=== PATIENT | male | born 1990 | race Caucasian/White ===

== ENCOUNTER 2017-03-01 12:48 | Inpatient (IN) | payer BC ==
--- NOTE | 2017-03-01 13:11 | ED ---
Psych HPI - General Chief Complaint: Psychiatric Symptoms Stated Complaint: Suicidal - Hand Injury Time Seen by Provider: 03/01/17 13:05 Source: patient, RN notes reviewed Mode of arrival: ambulatory - History of Present Illness Initial Comments: 26-year-old male presents to the emergency department with a chief complaint of suicidal ideation. Patient states that everything is just not working out well for him. Patient states he started to feel this way last night. Patient states he thought about walking out into traffic supposed to coming into the hospital today. Patient states he punched a wall last night out of anger. Patient states he does have from depression and has been hospitalized in the past. Patient does not see a counselor he does not see a psychiatrist is not currently on any medications. Patient states that he was concerned about his life so he thought that he should be evaluated. Patient admits to right hand pain worse to the outer aspect of the hand.Patient denies any recent fever, chills, shortness of breath, chest pain, back pain, abdominal pain, nausea vomiting, numbness or tingling, dysuria or hematuria, constipation or diarrhea, headaches or visual changes, or any other current symptoms. - Related Data Home Medications Medication Instructions Recorded Confirmed Ibuprofen [Motrin] 400 mg PO Q6HR PRN 03/01/17 03/01/17 Allergies Allergy/AdvReac Type Severity Reaction Status Date / Time No Known Allergies Allergy Verified 03/01/17 13:45 Review of Systems ROS Statement: Those systems with pertinent positive or pertinent negative responses have been documented in the HPI. ROS Other: All systems not noted in ROS Statement are negative. Past Medical History Past Medical History: No Reported History Additional Past Medical History / Comment(s): Chronic pain in right shoulder, and bilateral knees. History of Any Multi-Drug Resistant Organisms: None Reported Past Surgical History: Orthopedic Surgery Additional Past Surgical History / Comment(s): (L) KNEE, (R) KNEE, MOUTH SURG A CHILD Additional Past Anesthesia/Blood Transfusion Reaction / Comment(s): agitation after coming out of anesthesia. Past Psychological History: Anxiety, Depression, PTSD Smoking Status: Current every day smoker Past Alcohol Use History: Occasional Past Drug Use History: Marijuana - Past Family History Mother Additional Family Medical History / Comment(s): bulging disc in back. General Exam Limitations: no limitations General appearance: alert, in no apparent distress ENT exam: Present: normal exam, mucous membranes moist Neck exam: Present: normal inspection. Absent: tenderness, meningismus, lymphadenopathy Respiratory exam: Present: normal lung sounds bilaterally. Absent: respiratory distress, wheezes, rales, rhonchi, stridor Cardiovascular Exam: Present: regular rate, normal rhythm Extremities exam: Present: normal inspection, full ROM, tenderness (Over the fourth and fifth metatarsal carpals on the right hand), normal capillary refill Back exam: Present: normal inspection Neurological exam: Present: alert, oriented X3 Psychiatric exam: Present: depressed, suicidal ideation. Absent: homicidal ideation Skin exam: Present: warm, dry, intact, normal color. Absent: rash Course Vital Signs 03/01/17 03/01/17 12:55 15:49 Temperature 97.8 F Pulse Rate 111 H 79 Respiratory 20 18 Rate Blood Pressure 140/87 121/61 O2 Sat by Pulse 98 97 Oximetry Procedures - Orthopedic Splinting/Casting Injury #1 Side: right Upper Extremity Injury Location: hand Upper Extremity Immobilizer: ulnar gutter (short arm) Medical Decision Making - Medical Decision Making 26-year-old male presents emergency Department chief complaint of suicidal ideation as well as right hand pain. This time patient will undergo an x-ray of the right hand. This time patient does appear to have boxer fractures. We will splint the patient. We discussed follow-up with refill. We will also have the patient medically cleared for evaluation by psychiatry. This was discussed with the patient who is agreement with plan. This time patient does not appear to have major medical emergencies and is cleared to be evaluated by psychiatry. At this time the patient will be admitted to the psychiatric unit. Patient agreement with this. - Lab Data Lab Results 03/01/17 Range/Units 15:26 Urine Opiates Screen Detected H (NotDetected) Ur Oxycodone Screen Not Detected (NotDetected) Urine Methadone Screen Not Detected (NotDetected) Ur Propoxyphene Screen Not Detected (NotDetected) Ur Barbiturates Screen Not Detected (NotDetected) U Tricyclic Antidepress Not Detected (NotDetected) Ur Phencyclidine Scrn Not Detected (NotDetected) Ur Amphetamines Screen Not Detected (NotDetected) U Methamphetamines Scrn Not Detected (NotDetected) U Benzodiazepines Scrn Not Detected (NotDetected) Urine Cocaine Screen Not Detected (NotDetected) U Marijuana (THC) Screen Detected H (NotDetected) - Radiology Data Radiology results: report reviewed, image reviewed Disposition Clinical Impression: Closed boxer's fracture, Depression Narrative: right hand Disposition: TRANSFER TO PSYCH HOSP/UNIT Referrals: Al Torres MD [Primary Care Provider] - 1-2 days Ryan Vyas DO [Doctor of Osteopathic Medicine] - 1-2 days Time of Disposition: 16:13
--- NOTE | 2017-03-01 13:30 | XR ---
EXAMINATION TYPE: XR hand complete RT DATE OF EXAM: 03/01/2017 1:21 PM CLINICAL HISTORY: Punched wall injury with pain. TECHNIQUE: Frontal, lateral and oblique images of the right hand are obtained. COMPARISON: None. FINDINGS: There is acute comminuted minimally displaced fracture through distal metaphysis fifth met atarsal in the right hand. There is some radial and volar angulation of distal fracture fragment. The joint spaces in the right hand appear within normal limits. The overlying soft tissue appears unrem arkable. IMPRESSION: There is acute comminuted minimally displaced fracture through distal fifth metatarsal i n the right hand. (Boxer type fracture) (Initial encounter closed type post traumatic fracture).
[2017-03-01] MEDS ORDERED: IBUPROFEN 600 MG TAB PO STA (13:39)
[2017-03-01 16:49] VITALS: BMI 39.7
[2017-03-01] MEDS ORDERED: MAG HYDROX/AL HYDROX/SIMETH 30 ML CUP PO PRN (16:59)
[2017-03-01] MEDS ORDERED: MAGNESIUM HYDROXIDE 2,400 MG/10 ML CUP PO PRN (16:59)
[2017-03-01] MEDS ORDERED: ZIPRASIDONE 20 MG VIAL IM PRN (16:59)
[2017-03-01] MEDS: ACETAMINOPHEN TAB 325 MG TAB PO PRN (17:29)
[2017-03-02] MEDS: ACETAMINOPHEN TAB 325 MG TAB PO PRN ×5 (00:04→20:49)
[2017-03-02] MEDS: LORazepam 1 MG TAB PO PRN ×3 (00:05→18:21)
--- NOTE | 2017-03-02 08:48 | P.CNOR ---
History of Present Illness - [facility] Consult date: 03/02/17 Consult reason: fracture (Boxer's fracture right hand) History of present illness: This is a 26-year-old male admitted to the mental health unit yesterday with suicidal thoughts. He states that he punched a wall yesterday sustaining injury to his right hand. He was placed in a short arm splint and we're consulted for orthopedic evaluation. Past Medical History Past Medical History: No Reported History Additional Past Medical History / Comment(s): Chronic pain in right shoulder, and bilateral knees. History of Any Multi-Drug Resistant Organisms: None Reported Past Surgical History: Orthopedic Surgery Additional Past Surgical History / Comment(s): (L) KNEE, (R) KNEE, MOUTH SURG A CHILD. pt has right hand fx and is in a soft cast 03/01/17 Additional Past Anesthesia/Blood Transfusion Reaction / Comm: agitation after coming out of anesthesia. Past Psychological History: Anxiety, Depression, PTSD Smoking Status: Current every day smoker Past Alcohol Use History: Occasional Past Drug Use History: Marijuana - Past Family History Mother Additional Family Medical History / Comment(s): bulging disc in back. Medications and Allergies Home Medications Medication Instructions Recorded Confirmed Type Ibuprofen [Motrin] 400 mg PO Q6HR PRN 03/01/17 03/01/17 History Allergies Allergy/AdvReac Type Severity Reaction Status Date / Time No Known Allergies Allergy Verified 03/01/17 16:50 Physical Examination This is a 26-year-old male in no acute distress. He is alert and oriented 3. Exam of the right right upper extremity reveals a short arm splint intact including the ring and little fingers. The splint is removed. There is pain on palpation about the fifth metacarpal head. He has full finger motion without difficulty or pain. Neurovascular status to the upper extremities is intact. Results X-rays of the right hand reveal a fifth metacarpal neck fracture with mild palmar angulation. No other fractures or bony modalities noted. Assessment and Plan (1) Closed boxer's fracture Status: Acute Plan: The clinical and x-ray findings are discussed the patient. It is recommended that he be immobilized for the next 4-6 weeks. He will remain in the current splint until a boxer's fracture brace may be obtained. He is to keep the brace in place until follow-up in 2-[address] Ryan Vyas. I will leave pain medication up to the discretion of his psychiatrist.
[2017-03-02] MEDS: HYDROcodone/APAP 5-325MG 1 EACH TAB PO PRN ×2 (10:33→19:53)
[2017-03-02] MEDS: buPROPion XL 150 MG TAB.ER.24H PO SCH (10:35)
--- NOTE | 2017-03-02 10:54 | P.HP ---
Psychiatric H&P - . History & Physical: Allergies Allergy/AdvReac Type Severity Reaction Status Date / Time No Known Allergies Allergy Verified 03/01/17 16:50 Vital Signs Temp 98.4 F 03/02/17 05:30 Pulse 94 03/02/17 05:30 Resp 18 03/02/17 05:30 BP 145/70 03/02/17 05:30 Pulse Ox 97 03/01/17 16:22 Intake & Output 03/01/17 03/02/17 03/02/17 18:59 06:59 18:59 Weight 125.651 kg Laboratory Last Values Urine Opiates Screen Detected (NotDetected) H 03/01/17 15:26 Ur Oxycodone Screen Not Detected (NotDetected) 03/01/17 15:26 Urine Methadone Screen Not Detected (NotDetected) 03/01/17 15:26 Ur Propoxyphene Screen Not Detected (NotDetected) 03/01/17 15:26 Ur Barbiturates Screen Not Detected (NotDetected) 03/01/17 15:26 U Tricyclic Antidepress Not Detected (NotDetected) 03/01/17 15:26 Ur Phencyclidine Scrn Not Detected (NotDetected) 03/01/17 15:26 Ur Amphetamines Screen Not Detected (NotDetected) 03/01/17 15:26 U Methamphetamines Scrn Not Detected (NotDetected) 03/01/17 15:26 U Benzodiazepines Scrn Not Detected (NotDetected) 03/01/17 15:26 Urine Cocaine Screen Not Detected (NotDetected) 03/01/17 15:26 U Marijuana (THC) Screen Detected (NotDetected) H 03/01/17 15:26 03/02/17 10:19 IDENTIFYING DATA: This patient is a 27-year-old male who was admitted through the emergency room to the mental health unit. He presents with worsening symptoms of depression with acute suicidal ideation. HPI: The patient states that his mood is been depressed he has no desire for anything energy is low, sleep has been up and down. He states that he has no reason to live as he feels overwhelmed by stressors. Just prior to this admission he was involved in a verbal altercation with his fiance and out of anger he punched a wall and he incurred a boxer's fracture of his right hand. He states this altercation occurred in the presence of his 8-year-old daughter and he is very upset that she witnessed that. He endorses tearfulness, appetite is been stable. He continues have hopelessness thinking with ongoing suicidal thoughts he refuses to discuss his suicidal plan. He reports having no homicidal ideation. He is endorsing no auditory or visual hallucinations he is endorsing no specific delusions. He endorses no history of hypomanic or manic episodes. He states they have no firearms at home. He endorses no anxiety symptoms but just feels overwhelmed by stressors. He states that he has not seen his 2 sons since November, financially he is overwhelmed pain child support for his 8-year-old daughter and has not yet started pain for his sons. He states his vehicle broke down. PAST PSYCHIATRIC HISTORY: This is the patient's second inpatient psychiatric admission, his first was in 2013 under the care of Dr. Hurtado. He was placed on Zoloft at that time. He states he complied with the medication for 30 days then stopped it as he felt numb. Prior he had been on Effexor XR he does not remember how that medication worked he has also been prescribed Vistaril and trazodone. He is not working with an outpatient psychiatrist or therapist. No history of suicide attempts no other self-injurious behavior except for the recent fracture from punching the wall. The patient did see a psychiatrist while in the . PMH: Boxer's fracture of right hand ALLERGIES: NO KNOWN DRUG ALLERGIES MEDICATIONS: None CHEMICAL DEPENDENCY HISTORY: He reports using alcohol once every 2 weeks having anywhere from 1-5 drinks, he uses marijuana monthly, he did go to rehab while in the in 2010 but he felt it was unnecessary FAMILY PSYCHIATRIC HISTORY: None reported, no suicides in the family FAMILY CHEMICAL DEPENDENCY HISTORY: Other known to be alcohol dependent SOCIAL HISTORY: The patient is 26 years old he single but engaged since November. He had been previously with his fiance they broke up and they have now reconciled. He has a 8-year-old daughter with his current fiance. He has 6-month-old and [id number] sons with another woman. 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 He was exposed to no combat or trauma he was honorably discharged. He reports no legal history he reports no abuse history. He was born and raised in [place]. MENTAL STATUS EXAM: The patient is an overweight male appearing his stated age. He wears a mccormack he has numerous visible tattoos on his upper extremities his right upper extremity is splinted for the fracture. Eye contact is appropriate he becomes briefly tearful. He endorses a depressed and hopeless mood with ongoing suicidal thoughts. He reports no homicidal ideation. There is no report or evidence of auditory or visual hallucinations he endorses no specific delusions. He demonstrates no tangential thinking loose associations or flight of ideas. He endorses no racing thoughts. He demonstrates no verbal or physical aggressiveness. Hygiene grooming adequate he is dressed in his own clothing. He is alert and oriented to person place and date he is able to spell world backwards. He demonstrates no verbal or physical aggressiveness during our session. STRENGTHS/WEAKNESSES: Strength: Housing, employment weaknesses: Lack of follow- up with mental health services as an outpatient INTELLECTUAL FUNCTIONING: Average IMPRESSIONS: [] 1. Major depressive disorder recurrent severe without psychosis, rule out alcohol use disorder 2. Rule out cluster B traits 3. Boxer's fracture right hand PLAN: The patient has been admitted to the mental health unit he has signed in voluntarily. We reviewed his presenting symptoms and medication options and we will initiate Wellbutrin XL 150 mg in the morning with a plan of likely titrating it further. service worker helper has met with the patient and completed a psychosocial assessment we will begin discharge planning. He will be seen by the training administrator for routine medical exam. He has already been evaluated by orthopedics for his fracture. The recommendations were reviewed. [place] 5 mg twice daily will be initiated for pain control as needed. We will monitor him for safety he is encouraged to participate in the milieu. As we will allow we will arrange a support meeting during the hospitalization. 03/02/17 10:50
[2017-03-02 11:01] LABS: Basophils # (A) 0.1 k/uL (0-0.2); Basophils % (A) 0 %; CH 29.3; Eosinophils # (A) 0.2 k/uL (0-0.7); Eosinophils % (A) 2 %; HCT 48.8 % (39.0-53.0); HDW 2.77; Luc # (Auto) 0.24; Luc % (Auto) 2; Lymphocytes # (A) 2.3 k/uL (1.0-4.8); Lymphocytes % (A) 19 %; MCH 29.3 pg (25.0-35.0); MCHC 32.9 g/dL (31.0-37.0); MCV 89.2 fL (80.0-100.0); Mean Platelet Volume 6.4; Monocytes # (A) 0.7 k/uL (0-1.0); Monocytes % (A) 6 %; Neutrophils # (A) 8.5 k/uL (1.3-7.7); Neutrophils % (A) 71 %; RBC 5.47 m/uL (4.30-5.90); WBC (Perox) 12.06
[2017-03-02 11:25] LABS: ALT 38 U/L (21-72); AST 24 U/L (17-59); Alkaline Phosphatase 73 U/L (38-126); Anion Gap 10 mmol/L; Blood Urea Nitrogen 10 mg/dL (9-20); Calcium 9.5 mg/dL (8.4-10.2); Carbon Dioxide 26 mmol/L (22-30); Chloride 107 mmol/L (98-107); Glucose 93 mg/dL (74-99); Non-African American GFR(MDRD) >60 (>60 ml/min/1.73 sqM); Potassium 4.5 mmol/L (3.5-5.1); Sodium 143 mmol/L (137-145); Total Bilirubin 0.6 mg/dL (0.2-1.3); Total Protein 6.8 g/dL (6.3-8.2)
[2017-03-03] MEDS: ACETAMINOPHEN TAB 325 MG TAB PO PRN ×3 (06:39→20:44)
[2017-03-03] MEDS: HYDROcodone/APAP 5-325MG 1 EACH TAB PO PRN ×3 (07:56→22:56)
[2017-03-03] MEDS: buPROPion XL 150 MG TAB.ER.24H PO SCH (07:56)
--- NOTE | 2017-03-03 09:37 | P.PN ---
Progress Note - Text Interval history: The patient is found at the front office attendant he follows me to an interview room. He reports sleeping a portion of the night. Appetite is low. He has been tearful he states his mood is "shitty". He continues to have hopelessness thinking. He is concerned as to what his daughter thinks of him after his violent behavior. He reports attending some groups. We discussed the initiation of Wellbutrin XL his questions were answered. Mental status exam: The patient is alert he is dressed in his own clothing he is an overweight male appearing his stated age. He wears a mccormack. He has a new splint on his right upper extremity due to his fracture. He appears dysphoric he is tearful during the session. He reports feeling depressed and hopeless. Suicidal thoughts continue. No homicidal ideation he reports no thoughts of violence towards others. He has feelings of remorse regarding his behavior in front of his daughter. He demonstrates no verbal or physical aggressiveness. He is directable. He has no spontaneous speech but provides brief answers to questions asked. No flight of ideas or loose associations. Plan: The patient will continue on the Wellbutrin XL we will consider titrating that further in the next few days. He is encouraged to continue fully participating in the milieu. We will continue monitoring him for safety. It is likely he will not be older return home he states he may be a little to reside with his parents. He reports his pain is controlled with the [place].
[2017-03-03] MEDS: LORazepam 1 MG TAB PO PRN ×2 (09:39→20:44)
--- NOTE | 2017-03-03 22:23 | P.HPIM ---
History of Present Illness H&P Date: 03/02/17 Chief Complaint: Suicidal ideation. This is a history and physical in a well-known 26-year-old white male who is fairly well-known to my practice. He states he is been having difficulty in his marriage and had significant problems with anger. He has struggled with depression the past and does seek counseling. He states that he felt desponded yesterday and punched a wall out of anger. Boxer's fracture was noted in his x- ray. Orthopedics has been consulted and he is been placed on appropriate splint. He otherwise has no significant past medical history. He denies any significant fever or chills shortness of breath, chest pain and back pain or significant abdominal pain Review of Systems Constitutional: Denies chills, Denies fever Eyes: denies blurred vision, denies pain Ears, nose, mouth and throat: Denies headache, Denies sore throat Cardiovascular: Denies chest pain, Denies shortness of breath Respiratory: Denies cough Gastrointestinal: Denies abdominal pain, Denies diarrhea, Denies nausea, Denies vomiting Past Medical History Past Medical History: No Reported History Additional Past Medical History / Comment(s): Chronic pain in right shoulder, and bilateral knees. History of Any Multi-Drug Resistant Organisms: None Reported Past Surgical History: Orthopedic Surgery Additional Past Surgical History / Comment(s): (L) KNEE, (R) KNEE, MOUTH SURG A CHILD. pt has right hand fx and is in a soft cast 03/01/17 Additional Past Anesthesia/Blood Transfusion Reaction / Comment(s): agitation after coming out of anesthesia. Past Psychological History: Anxiety, Depression, PTSD Smoking Status: Current every day smoker Past Alcohol Use History: Occasional Past Drug Use History: Marijuana - Past Family History Mother Additional Family Medical History / Comment(s): bulging disc in back. Medications and Allergies Home Medications Medication Instructions Recorded Confirmed Type Ibuprofen [Motrin] 400 mg PO Q6HR PRN 03/01/17 03/01/17 History Allergies Allergy/AdvReac Type Severity Reaction Status Date / Time No Known Allergies Allergy Verified 03/01/17 16:50 Physical Exam Vitals: Vital Signs Temp Pulse Pulse Resp BP BP BP 03/02/17 05:30 98.4 F 94 18 145/70 03/01/17 16:41 98.2 F 90 18 124/71 03/01/17 16:22 97.8 F 79 18 121/61 Pulse Ox 03/02/17 05:30 03/01/17 16:41 03/01/17 16:22 97 Intake and Output 03/01/17 03/02/17 03/02/17 22:59 06:59 14:59 Other: Weight 125.651 kg - Constitutional General appearance: no acute distress - EENT Eyes: EOMI - Neck Neck: no lymphadenopathy - Respiratory Respiratory: bilateral: CTA - Cardiovascular Rhythm: regular Heart sounds: normal: S1, S2 - Gastrointestinal General gastrointestinal: soft, no tenderness - Musculoskeletal Musculoskeletal: gait normal - Psychiatric Psychiatric: A&O x's 3, no intact judgment & insight Assessment and Plan (1) Closed boxer's fracture Status: Acute (2) Depression Status: Acute (3) Suicidal ideation Status: Acute Plan: Appreciate orthopedic input. Continue current regimen of treatment from psychiatry. We'll continue follow from a medical perspective. Question need for pain control for the fracture. We'll defer to psychiatry.
[2017-03-04] MEDS: buPROPion XL 150 MG TAB.ER.24H PO SCH (08:20)
[2017-03-04] MEDS: HYDROcodone/APAP 5-325MG 1 EACH TAB PO PRN ×3 (08:22→23:31)
--- NOTE | 2017-03-04 09:14 | P.PN ---
Progress Note - Text Interval history: The patient is found at the front end alignment specialist he follows me to an interview room. He reports his mood continues to be down he feels guilty he finds it difficult to think of any positive characteristics that he has. He is glad that his son's mother is allowing him to speak to them. He did call his fianc and left a voicemail as she did not answer. He reports attending some groups. He did get upset yesterday in group when he was asked to name one positive quality about himself. He states he can't possibly think of one when he was recently violent at home. We discussed that he may be utilizing all or none thinking and he is challenged to still try to think of some positive qualities. We discussed the Wellbutrin further we will increase the dose tomorrow. He is reporting no side effects from the medication. We did increase his [place] because of pain complaint related to his hand fracture. Mental status exam: The patient is alert he is an overweight male appearing his stated age. He is dressed in his own clothing. He is wearing a splint on his right upper extremity. He reports his mood is depressed he still has some hopelessness thinking with continued suicidal thoughts. He reports no homicidal ideation or aggressive feelings towards others. He is endorsing no auditory or visual hallucinations he endorses no specific delusions. Insight and judgment limited. Cognitively he is oriented to person place and date. He demonstrates no verbal or physical aggressiveness during the session. He maintains a constricted to bland affect. Speech is spontaneous fluent nonpressured. There is no evidence of tangential thinking loose associations or flight of ideas. Plan: The patient will continue on the Wellbutrin XL we will titrate this to 300 mg daily starting tomorrow. We will continue to monitor him for safety and encourage his participation in the milieu. I anticipate he will be appropriate for discharge early to mid next week.
[2017-03-04] MEDS: ACETAMINOPHEN TAB 325 MG TAB PO PRN ×2 (11:35→20:05)
[2017-03-04] MEDS: LORazepam 1 MG TAB PO PRN ×2 (11:36→20:06)
[2017-03-05] MEDS: HYDROcodone/APAP 5-325MG 1 EACH TAB PO PRN ×3 (08:05→23:31)
[2017-03-05] MEDS: buPROPion XL 300 MG TAB.ER.24H PO SCH (08:07)
[2017-03-05] MEDS: LORazepam 1 MG TAB PO PRN (08:54)
[2017-03-05] MEDS: ACETAMINOPHEN TAB 325 MG TAB PO PRN ×2 (08:54→17:31)
--- NOTE | 2017-03-05 12:13 | P.PN ---
Progress Note - Text Interval history: A she has seen in cross coverage for Dr. Tee today. He reports that his mood is doing better overall. He seems to be tolerating the Wellbutrin XL 300 mg well. He talks about having punched a wall prior to admission. He had a family meeting today which seemed to go well. Mental status exam: He is alert and cooperative with the interview. His mood seems to be improved. His affect does show range. He denies any thoughts of harm to self or others. He does not show any agitation. No evidence of active psychosis. Plan: We will maintain current psychotropic medications. He does inquire regarding and anti-inflammatory, we will make contact with Dr. Torres regarding a follow-up and any recommendations. Continue to cover this patient for Dr. Tee through the weekend.
[2017-03-05] MEDS: IBUPROFEN 800 MG TAB PO PRN ×2 (13:48→21:32)
[2017-03-06] MEDS: ACETAMINOPHEN TAB 325 MG TAB PO PRN ×3 (00:52→19:06)
[2017-03-06] MEDS: LORazepam 1 MG TAB PO PRN ×3 (00:52→19:24)
[2017-03-06 01:15] VITALS: RESP 16
[2017-03-06] MEDS: buPROPion XL 300 MG TAB.ER.24H PO SCH (07:44)
[2017-03-06] MEDS: HYDROcodone/APAP 5-325MG 1 EACH TAB PO PRN ×3 (07:44→23:50)
[2017-03-06] MEDS: IBUPROFEN 800 MG TAB PO PRN (10:10)
--- NOTE | 2017-03-06 12:40 | P.PN ---
Progress Note - Text Interval history: Patient seen in cross coverage for Dr. Tee today. He reports that overall he is doing better. He describes 2 incidences today where he was upset but was able to use his coping skills. He does describe at times feeling some anxiety. He feels that the Wellbutrin is helping is depression. He was started on Motrin when necessary which is giving him some benefit. Mental status exam: He is alert and cooperative with the interview. His speech is fluent, not rapid or pressured. Thought processes organized. His mood is improved overall. He denies any thoughts of harm to self or others. No evidence of psychosis or agitation. Plan: Patient be maintained on current psychotropic medication regimen. Dr. Tee or colleague will be resuming care this patient starting tomorrow. Look for discharge planning as early as Tuesday of this next week.
[2017-03-07] MEDS: IBUPROFEN 800 MG TAB PO PRN ×3 (00:53→17:06)
[2017-03-07] MEDS: LORazepam 1 MG TAB PO PRN ×3 (02:21→19:59)
[2017-03-07] MEDS: ACETAMINOPHEN TAB 325 MG TAB PO PRN ×3 (02:23→19:59)
[2017-03-07] MEDS: buPROPion XL 300 MG TAB.ER.24H PO SCH (08:09)
[2017-03-07] MEDS: HYDROcodone/APAP 5-325MG 1 EACH TAB PO PRN ×3 (08:09→23:32)
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
[2017-03-08] MEDS: IBUPROFEN 800 MG TAB PO PRN (01:05)
[2017-03-08] MEDS: ACETAMINOPHEN TAB 325 MG TAB PO PRN (06:25)
[2017-03-08 06:26] VITALS: BP 119/58; PULSE 70; TEMP 98.1
[2017-03-08] MEDS: LORazepam 1 MG TAB PO PRN (06:30)
[2017-03-08] MEDS: buPROPion XL 300 MG TAB.ER.24H PO SCH (09:00)
[2017-03-08] MEDS: HYDROcodone/APAP 5-325MG 1 EACH TAB PO PRN (09:01)
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
== END 2017-03-08 11:13 | disposition home or self-care (01) | DRG 885 ==
LOC: EC 12:48 → 3MHU 16:15
PROVIDERS: ADMIT Psychiatry & Neurology Psychiatry; ATTEND Psychiatry & Neurology Psychiatry
DX: F33.2 Major depressive disorder, recurrent severe without psychotic features (principal); R45.851 Suicidal ideations; E66.3 Overweight; F17.200 Nicotine dependence, unspecified, uncomplicated; F43.10 Post-traumatic stress disorder, unspecified; S62.339A Displaced fracture of neck of unspecified metacarpal bone, initial encounter for closed fracture
CPT/HCPCS: 29125; 80053; 80306; 82075; 84443; 85025; 99285

== ENCOUNTER 2017-08-05 22:23 | Emergency (ER) | payer SELFPAY ==
--- NOTE | 2017-08-06 00:10 | ED ---
General Adult HPI - General Chief complaint: Psychiatric Symptoms Stated complaint: mental health Time Seen by Provider: 08/05/17 22:38 Source: patient, RN notes reviewed, old records reviewed Mode of arrival: ambulatory Limitations: no limitations - History of Present Illness Initial comments: This is a 19-year-old male here for evaluation of psychiatric disease. Patient is not suicidal but just feels not himself not well. Patient's it is off all psychiatric medications at this time and feels it is been medication. He does not feel he needs hospital admission. He is not suicidal but is states is having a difficult time mentally right now. Patient does have extensive psychiatric history - Related Data Home Medications Medication Instructions Recorded Confirmed guaiFENesin 400 mg PO Q4H PRN 08/05/17 08/05/17 Allergies Allergy/AdvReac Type Severity Reaction Status Date / Time No Known Allergies Allergy Verified 08/05/17 22:54 Review of Systems ROS Statement: Those systems with pertinent positive or pertinent negative responses have been documented in the HPI. ROS Other: All systems not noted in ROS Statement are negative. Past Medical History Past Medical History: No Reported History Additional Past Medical History / Comment(s): Chronic pain in right shoulder, and bilateral knees. History of Any Multi-Drug Resistant Organisms: None Reported Past Surgical History: Orthopedic Surgery Additional Past Surgical History / Comment(s): (L) KNEE, (R) KNEE, MOUTH SURG A CHILD. pt has right hand fx and is in a soft cast 03/01/17 Additional Past Anesthesia/Blood Transfusion Reaction / Comment(s): agitation after coming out of anesthesia. Past Psychological History: Anxiety, Depression, PTSD Smoking Status: Current every day smoker Past Alcohol Use History: Occasional Past Drug Use History: Marijuana - Past Family History Mother Additional Family Medical History / Comment(s): bulging disc in back. General Exam Limitations: no limitations General appearance: alert, in no apparent distress Head exam: Present: atraumatic, normocephalic, normal inspection Eye exam: Present: normal appearance, PERRL, EOMI. Absent: scleral icterus, conjunctival injection, periorbital swelling ENT exam: Present: normal exam, mucous membranes moist Neck exam: Present: normal inspection. Absent: tenderness, meningismus, lymphadenopathy Respiratory exam: Present: normal lung sounds bilaterally. Absent: respiratory distress, wheezes, rales, rhonchi, stridor Cardiovascular Exam: Present: regular rate, normal rhythm, normal heart sounds. Absent: systolic murmur, diastolic murmur, rubs, gallop, clicks GI/Abdominal exam: Present: soft, normal bowel sounds. Absent: distended, tenderness, guarding, rebound, rigid Extremities exam: Present: normal inspection, full ROM, normal capillary refill. Absent: tenderness, pedal edema, joint swelling, calf tenderness Back exam: Present: normal inspection Neurological exam: Present: alert, oriented X3, CN II-XII intact Psychiatric exam: Present: normal affect, normal mood Skin exam: Present: warm, dry, intact, normal color. Absent: rash Course Vital Signs 08/05/17 22:27 Temperature 98.0 F Pulse Rate 103 H Respiratory 20 Rate Blood Pressure 136/74 O2 Sat by Pulse 99 Oximetry - Reevaluation(s) Reevaluation #1: 08/06/17 00:10 Patient is medically clear for psychiatric evaluation Medical Decision Making - Medical Decision Making 27 male seen and evaluated by psychiatry, not suicidal or homicidal and is ok for discharg and outpatient follow up Disposition Clinical Impression: Depression, Major depressive disorder, recurrent severe without psychotic features Disposition: HOME SELF-CARE Condition: Good Instructions: Depression (ED) Referrals: Al Torres MD [Primary Care Provider] - 1-2 days
[2017-08-06 01:52] VITALS: BP 138/66; PULSE 97; RESP 18; TEMP 97.6
== END 2017-08-06 01:50 | disposition home or self-care (01) ==
LOC: EC 22:23
DX: F32.2 Major depressive disorder, single episode, severe without psychotic features (principal); F41.9 Anxiety disorder, unspecified; F43.10 Post-traumatic stress disorder, unspecified; F17.200 Nicotine dependence, unspecified, uncomplicated
CPT/HCPCS: 82075; 99284

== ENCOUNTER 2018-03-26 16:19 | Emergency (ER) | payer BC, OTHER ==
[2018-03-26 16:28] VITALS: BP 126/56; PULSE 63; RESP 18; TEMP 98.7
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
== END 2018-03-26 17:16 | disposition home or self-care (01) ==
LOC: EC 16:19
DX: S09.90XA Unspecified injury of head, initial encounter (principal); R40.2412 Glasgow coma scale score 13-15, at arrival to emergency department; F17.200 Nicotine dependence, unspecified, uncomplicated; Z53.29 Procedure and treatment not carried out because of patient's decision for other reasons; V18.4XXA Pedal cycle driver injured in noncollision transport accident in traffic accident, initial encounter; Y93.55 Activity, bike riding
CPT/HCPCS: 99283

== ENCOUNTER 2018-08-22 13:42 | Emergency (ER) | payer BC ==
[2018-08-22 13:52] VITALS: RESP 18
[2018-08-22] MEDS ORDERED: SODIUM CHLORIDE 0.9% 1,000 ML IV STA (14:07)
--- NOTE | 2018-08-22 14:11 | ED ---
Dizziness HPI - General Chief Complaint: Syncope Stated Complaint: syncope Time Seen by Provider: 08/22/18 13:54 Source: patient, RN notes reviewed, old records reviewed Mode of arrival: ambulatory Limitations: no limitations - History of Present Illness Initial Comments: Patient is 28-year-old male presents emergency pharmacy was chief complaint of syncopal episode. Patient reports that he was standing at his door letting his dog out when he had a blank stare over his face. Patient then passed out onto the ground. He states that he did hit his head. There was a brief loss of consciousness. Patient states that he woke up on the floor with his girlfriend as standing over him. Patient states that this happened at 11 AM. He reports that since a head injury in March of this year he's had frequent forgetfulness. Patient states that he has hada past medical history including cardiac history or seizure disorders. Patient states that he is a smoker. He denies any chest pain shortness breath. Denies any nausea vomiting or diarrhea. - Related Data Home Medications Medication Instructions Recorded Confirmed Citalopram Hydrobromide [CeleXA] 40 mg PO DAILY 08/22/18 08/22/18 Dextroamphetamine/Amphetamine 15 mg PO BID 08/22/18 08/22/18 [Adderall] Allergies Allergy/AdvReac Type Severity Reaction Status Date / Time No Known Allergies Allergy Verified 08/22/18 14:05 Review of Systems ROS Statement: Those systems with pertinent positive or pertinent negative responses have been documented in the HPI. ROS Other: All systems not noted in ROS Statement are negative. Past Medical History Past Medical History: No Reported History Additional Past Medical History / Comment(s): Chronic pain in right shoulder, and bilateral knees. History of Any Multi-Drug Resistant Organisms: None Reported Past Surgical History: Orthopedic Surgery Additional Past Surgical History / Comment(s): (L) KNEE, (R) KNEE, MOUTH SURG A CHILD. pt has right hand fx and is in a soft cast 03/01/17 Additional Past Anesthesia/Blood Transfusion Reaction / Comment(s): agitation after coming out of anesthesia. Past Psychological History: ADD/ADHD, Anxiety, Depression, PTSD Smoking Status: Current every day smoker Past Alcohol Use History: Occasional Past Drug Use History: Marijuana - Past Family History Mother Additional Family Medical History / Comment(s): bulging disc in back. General Exam - General Exam Comments Initial Comments: This Patient is a well-appearing alert and oriented [id number] male. No acute distress. Limitations: no limitations General appearance: alert, in no apparent distress Head exam: Present: atraumatic, normocephalic, normal inspection Eye exam: Present: normal appearance, PERRL, EOMI. Absent: scleral icterus, conjunctival injection, periorbital swelling ENT exam: Present: normal exam, mucous membranes moist Neck exam: Present: normal inspection. Absent: tenderness, meningismus, lymphadenopathy Respiratory exam: Present: normal lung sounds bilaterally. Absent: respiratory distress, wheezes, rales, rhonchi, stridor Cardiovascular Exam: Present: regular rate, normal rhythm, normal heart sounds. Absent: systolic murmur, diastolic murmur, rubs, gallop, clicks GI/Abdominal exam: Present: soft, normal bowel sounds. Absent: distended, tenderness, guarding, rebound, rigid Extremities exam: Present: normal inspection, full ROM, normal capillary refill. Absent: tenderness, pedal edema, joint swelling, calf tenderness Back exam: Present: normal inspection Neurological exam: Present: alert, oriented X3, CN II-XII intact, normal gait Expanded Patient oriented to: Present: person, place, time Speech: Present: fluid speech Cranial nerves: EOM's Intact: Normal Cerebellar function: Finger to Nose: Normal Upper motor neuron: Aj Neglect: Normal Sensory exam: Upper Extremity Light Touch: Normal, Lower Extremity Light Touch: Normal Motor strength exam: RUE: 5, LUE: 5, RLE: 5, LLE: 5 Eye Response: (4) open spontaneously Motor Response: (6) obeys commands Verbal Response: (5) oriented [place] Total: 15 Psychiatric exam: Present: normal affect, normal mood, other (Patient is good spirits. Patient is a distress.) Skin exam: Present: warm, dry, intact, normal color. Absent: rash Course Vital Signs 08/22/18 13:48 Temperature 98.8 F Pulse Rate 85 Respiratory 18 Rate Blood Pressure 102/67 O2 Sat by Pulse 96 Oximetry Medical Decision Making - Medical Decision Making 28 -year-old male presents emergency department stay with chief complaint of syncopal episode. Patient reports that he was had a blank stare worse they send someone fell. He did hit his head was cautious per minute. Patient at this time states he fell hitting her directly thoughts came to emergency room. Evaluated. Patient CT of his brain was negative for any acute disease. Blood work was reviewed and unremarkable. EKG shows no acute changes. Chest x-ray was reviewed and unremarkable. Patient is alert and receiving IV fluids. I discussed this and that having a blank stare and then having the single episode he may have an underlying seizure disorder. Discussed that he should have some follow-up with neurology and PCP. Patient agrees to treatment plan will comply. Return parameters were discussed. - Lab Data Result diagrams: 08/22/18 14:15 08/22/18 14:15 Lab Results 08/22/18 08/22/18 08/22/18 Range/Units 14:15 14:15 14:15 WBC 12.7 H (3.8-10.6) k/uL RBC 5.13 (4.30-5.90) m/uL Hgb 15.6 (13.0-17.5) gm/dL Hct 46.2 (39.0-53.0) % MCV 90.2 (80.0-100.0) fL MCH 30.4 (25.0-35.0) pg MCHC 33.8 (31.0-37.0) g/dL RDW 13.4 (11.5-15.5) % Plt Count 317 (150-450) k/uL Neutrophils % 61 % Lymphocytes % 27 % Monocytes % 6 % Eosinophils % 4 % Basophils % 1 % Neutrophils # 7.7 (1.3-7.7) k/uL Lymphocytes # 3.4 (1.0-4.8) k/uL Monocytes # 0.8 (0-1.0) k/uL Eosinophils # 0.5 (0-0.7) k/uL Basophils # 0.1 (0-0.2) k/uL PT (9.0-12.0) sec INR (<1.2) APTT (22.0-30.0) sec Sodium 141 (137-145) mmol/L Potassium 4.8 (3.5-5.1) mmol/L Chloride 109 H (98-107) mmol/L Carbon Dioxide 25 (22-30) mmol/L Anion Gap 7 mmol/L BUN 14 (9-20) mg/dL Creatinine 0.71 (0.66-1.25) mg/dL Est GFR (CKD-EPI)AfAm >90 (>60 ml/min/1.73 sqM) Est GFR (CKD-EPI)NonAf >90 (>60 ml/min/1.73 sqM) Glucose 71 L (74-99) mg/dL Calcium 8.8 (8.4-10.2) mg/dL Total Bilirubin 0.3 (0.2-1.3) mg/dL AST 26 (17-59) U/L ALT 23 (21-72) U/L Alkaline Phosphatase 51 (38-126) U/L Total Creatine Kinase 104 (55-170) U/L CK-MB (CK-2) 1.4 (0.0-2.4) ng/mL CK-MB (CK-2) Rel Index 1.3 Troponin I <0.012 (0.000-0.034) ng/mL Total Protein 5.7 L (6.3-8.2) g/dL Albumin 3.3 L (3.5-5.0) g/dL 08/22/18 Range/Units 14:15 WBC (3.8-10.6) k/uL RBC (4.30-5.90) m/uL Hgb (13.0-17.5) gm/dL Hct (39.0-53.0) % MCV (80.0-100.0) fL MCH (25.0-35.0) pg MCHC (31.0-37.0) g/dL RDW (11.5-15.5) % Plt Count (150-450) k/uL Neutrophils % % Lymphocytes % % Monocytes % % Eosinophils % % Basophils % % Neutrophils # (1.3-7.7) k/uL Lymphocytes # (1.0-4.8) k/uL Monocytes # (0-1.0) k/uL Eosinophils # (0-0.7) k/uL Basophils # (0-0.2) k/uL PT 10.4 (9.0-12.0) sec INR 1.1 (<1.2) APTT 24.3 (22.0-30.0) sec Sodium (137-145) mmol/L Potassium (3.5-5.1) mmol/L Chloride (98-107) mmol/L Carbon Dioxide (22-30) mmol/L Anion Gap mmol/L BUN (9-20) mg/dL Creatinine (0.66-1.25) mg/dL Est GFR (CKD-EPI)AfAm (>60 ml/min/1.73 sqM) Est GFR (CKD-EPI)NonAf (>60 ml/min/1.73 sqM) Glucose (74-99) mg/dL Calcium (8.4-10.2) mg/dL Total Bilirubin (0.2-1.3) mg/dL AST (17-59) U/L ALT (21-72) U/L Alkaline Phosphatase (38-126) U/L Total Creatine Kinase (55-170) U/L CK-MB (CK-2) (0.0-2.4) ng/mL CK-MB (CK-2) Rel Index Troponin I (0.000-0.034) ng/mL Total Protein (6.3-8.2) g/dL Albumin (3.5-5.0) g/dL 08/22/18 14:10 EKG performed at 1400 shows normal sinus rhythm normal EKG noted. Ventricular rate of 80 bpm. It was 132 ms. Stressors and 72 ms. QT QTc is 368/424 ms. - Radiology Data Radiology results: report reviewed CT brain was negative for any acute disease. Chest x-ray was negative for any acute process. Disposition Clinical Impression: Syncope Disposition: HOME SELF-CARE Condition: Good Instructions: Syncope (ED) Additional Instructions: Patient has follow-up with primary care provider as well as neurologist. Return to the emergency department if any alarming signs or symptoms occur. Is patient prescribed a controlled substance at d/c from ED?: No Referrals: Al Torres MD [Primary Care Provider] - 1-2 days Zechariah Ulloa MD [STAFF PHYSICIAN] - 1-2 days Time of Disposition: 16:31
[2018-08-22 14:36] LABS: Basophils # (A) 0.1 k/uL (0-0.2); Basophils % (A) 1 %; Eosinophils # (A) 0.5 k/uL (0-0.7); Eosinophils % (A) 4 %; HCT 46.2 % (39.0-53.0); HGB 15.6 gm/dL (13.0-17.5); Lymphocytes # (A) 3.4 k/uL (1.0-4.8); Lymphocytes % (A) 27 %; MCH 30.4 pg (25.0-35.0); MCHC 33.8 g/dL (31.0-37.0); MCV 90.2 fL (80.0-100.0); Mean Platelet Volume 6.5; Monocytes # (A) 0.8 k/uL (0-1.0); Monocytes % (A) 6 %; Neutrophils # (A) 7.7 k/uL (1.3-7.7); Neutrophils % (A) 61 %; Platelet Count 317 k/uL (150-450); RBC 5.13 m/uL (4.30-5.90); RDW 13.4 % (11.5-15.5); WBC 12.7 k/uL (3.8-10.6)
[2018-08-22 14:45] LABS: ALT 23 U/L (21-72); AST 26 U/L (17-59); Albumin 3.3 g/dL (3.5-5.0); Alkaline Phosphatase 51 U/L (38-126); Anion Gap 7 mmol/L; Blood Urea Nitrogen 14 mg/dL (9-20); Calcium 8.8 mg/dL (8.4-10.2); Carbon Dioxide 25 mmol/L (22-30); Chloride 109 mmol/L (98-107); Glucose 71 mg/dL (74-99); Potassium 4.8 mmol/L (3.5-5.1); Sodium 141 mmol/L (137-145); Total Bilirubin 0.3 mg/dL (0.2-1.3); Total Protein 5.7 g/dL (6.3-8.2)
[2018-08-22 14:54] LABS: Creatine Kinase 104 U/L (55-170)
[2018-08-22 14:58] LABS: INR 1.1 (<1.2); Partial Thromboplastin Time 24.3 sec (22.0-30.0); Prothrombin Time 10.4 sec (9.0-12.0)
[2018-08-22 15:07] LABS: Creatine Kinase MB 1.4 ng/mL (0.0-2.4); Troponin I <0.012 ng/mL (0.000-0.034)
--- NOTE | 2018-08-22 15:11 | XR ---
EXAMINATION TYPE: XR chest 2V DATE OF EXAM: 08/22/2018 COMPARISON: 10/01/2013 TECHNIQUE: PA and lateral views submitted. HISTORY: Syncope FINDINGS: The lungs are clear and there is no pneumothorax, pleural effusion, or focal pneumonia. Chronic def ormity involving the left clavicle. Heart size upper limits of normal. Mild hyperinflation. Correlate for COPD. Hypertrophic change of the spine. IMPRESSION: 1. No acute process.
--- NOTE | 2018-08-22 15:13 | CT ---
EXAMINATION TYPE: CT brain wo con DATE OF EXAM: 08/22/2018 COMPARISON: None HISTORY: Syncope. CT DLP: 1106 mGycm. Automated Exposure Control for Dose Reduction was Utilized. TECHNIQUE: CT scan of the head is performed without contrast. FINDINGS: There is no acute intracranial hemorrhage, mass effect, or midline shift identified. The ventricles and sulci are within normal limits in size. The globes are intact and the visualized sin uses are clear. IMPRESSION: No acute intracranial hemorrhage, mass effect, or midline shift is seen.
[2018-08-22 16:48] VITALS: BP 110/57; PULSE 65; TEMP 98.6
== END 2018-08-22 16:48 | disposition home or self-care (01) ==
LOC: EC 13:42
DX: R55 Syncope and collapse (principal); R41.0 Disorientation, unspecified; F32.9 Major depressive disorder, single episode, unspecified; F41.9 Anxiety disorder, unspecified; F90.9 Attention-deficit hyperactivity disorder, unspecified type; F17.200 Nicotine dependence, unspecified, uncomplicated; Z79.899 Other long term (current) drug therapy; W01.0XXA Fall on same level from slipping, tripping and stumbling without subsequent striking against object, initial encounter; Y93.89 Activity, other specified
CPT/HCPCS: 36415; 70450; 71046; 80053; 82550; 82553; 84484; 85025; 85610; 85730; 93005; 96360; 99285

== ENCOUNTER 2019-06-29 15:28 | Emergency (ER) | payer BC, OTHER ==
[2019-06-29 15:43] VITALS: BP 120/79; PULSE 78; RESP 16; TEMP 97.8
[2019-06-29] MEDS ORDERED: IBUPROFEN 600 MG STARTER PACK 4 TAB BTL PO STA (15:55)
[2019-06-29] MEDS ORDERED: ACET/COD 300 MG/30 MG STARTER PACK 6 TAB BTL PO STA (15:55)
--- NOTE | 2019-06-29 15:56 | ED ---
Lower Extremity Injury HPI - General Chief Complaint: Extremity Injury, Lower Stated Complaint: Knee injury-[facility] Time Seen by Provider: 06/29/19 15:43 Source: patient, RN notes reviewed, old records reviewed Mode of arrival: ambulatory Limitations: no limitations - History of Present Illness Initial Comments: This patient's a 28-year-old male presents emergency department today for evaluation with complaints of right knee pain and swelling. Patient reports that up to the work truck, he works for [employer]. Reports that he stepped up he felt his right knee pop and had immediate swelling. Patient reports pain with ambulation. He has had a previous right knee surgery when he is in the and he states that he had bone fragments that were removed. Patient reports that he does not have an orthopedic as of this time. He denies any hip or ankle pain. - Related Data Home Medications Medication Instructions Recorded Confirmed Citalopram Hydrobromide [CeleXA] 40 mg PO DAILY 08/22/18 08/22/18 Dextroamphetamine/Amphetamine 15 mg PO BID 08/22/18 08/22/18 [Adderall] Previous Rx's Medication Instructions Recorded Ibuprofen 600 mg PO TID #20 tablet 06/29/19 Allergies Allergy/AdvReac Type Severity Reaction Status Date / Time No Known Allergies Allergy Verified 06/29/19 15:43 Review of Systems ROS Statement: Those systems with pertinent positive or pertinent negative responses have been documented in the HPI. ROS Other: All systems not noted in ROS Statement are negative. Past Medical History Past Medical History: No Reported History Additional Past Medical History / Comment(s): Chronic pain in right shoulder, and bilateral knees. History of Any Multi-Drug Resistant Organisms: None Reported Past Surgical History: Orthopedic Surgery Additional Past Surgical History / Comment(s): (L) KNEE, (R) KNEE, MOUTH SURG A CHILD. pt has right hand fx and is in a soft cast 03/01/17 Additional Past Anesthesia/Blood Transfusion Reaction / Comment(s): agitation after coming out of anesthesia. Past Psychological History: ADD/ADHD, Anxiety, Depression, PTSD Smoking Status: Current every day smoker Past Alcohol Use History: Occasional Past Drug Use History: Marijuana - Past Family History Mother Additional Family Medical History / Comment(s): bulging disc in back. General Exam - General Exam Comments Initial Comments: This is a 28-year-old male. Alert and oriented 3. Patient appears in no significant distress. Limitations: no limitations General appearance: alert, in no apparent distress Head exam: Present: atraumatic, normocephalic, normal inspection Eye exam: Present: normal appearance, PERRL, EOMI. Absent: scleral icterus, conjunctival injection, periorbital swelling ENT exam: Present: normal exam, mucous membranes moist Neck exam: Present: normal inspection. Absent: tenderness, meningismus, lymphadenopathy Respiratory exam: Present: normal lung sounds bilaterally. Absent: respiratory distress, wheezes, rales, rhonchi, stridor Cardiovascular Exam: Present: regular rate, normal rhythm, normal heart sounds. Absent: systolic murmur, diastolic murmur, rubs, gallop, clicks GI/Abdominal exam: Present: soft, normal bowel sounds. Absent: distended, tenderness, guarding, rebound, rigid Extremities exam: Present: normal inspection, full ROM, normal capillary refill. Absent: tenderness, pedal edema, joint swelling, calf tenderness Right Knee exam: Present: tenderness (Significant tenderness over her lateral and medial collateral ligaments. Evidence of effusion suprapatellar.), swelling. Absent: normal inspection Lower Leg exam: Present: normal inspection, full ROM Ankle exam: Present: normal inspection, full ROM Foot/Toe exam: Present: normal inspection, full ROM Neurovascular tendon exam: Present: no vascular compromise Gait: observed and limited by pain Back exam: Present: normal inspection Neurological exam: Present: alert, oriented X3, CN II-XII intact Psychiatric exam: Present: normal affect, normal mood Skin exam: Present: warm, dry, intact, normal color. Absent: rash Course Vital Signs 06/29/19 15:40 Temperature 97.8 F Pulse Rate 78 Respiratory 16 Rate Blood Pressure 120/79 O2 Sat by Pulse 99 Oximetry Medical Decision Making - Medical Decision Making 28-year-old male presents today for evaluation with complaints of right knee pain after twisting it while stepping onto a work truck. Patient has significant effusion in the prepatellar area. Pain over the lateral medial compartments of the knee. X-ray of the knee was negative for any acute process. Patient will be placed in a knee immobilizer with close follow-up with primary care physician and guest experience specialist. Off work until seen by orthopedic. All questions were answered return parameters were discussed. - Radiology Data Radiology results: report reviewed No acute fracture dislocation of the right knee. Disposition Clinical Impression: Knee sprain, Knee effusion Disposition: HOME SELF-CARE Condition: Good Instructions (If sedation given, give patient instructions): Knee Sprain (ED) Additional Instructions: Patient advised to have close follow up with his primary care physician or guest experience specialist. Remain in the immobilizer and states until seen by or so. Take pain medicine and antiinflammatory medicine as prescribed. Prescriptions: Ibuprofen 600 mg PO TID #20 tablet Is patient prescribed a controlled substance at d/c from ED?: No Referrals: Al Torres MD [Primary Care Provider] - 1-2 days Surinder Estevez DO [Medical Doctor] - 1-2 days Time of Disposition: 16:23
--- NOTE | 2019-06-29 16:13 | XR ---
EXAMINATION TYPE: XR knee complete RT DATE OF EXAM: 06/29/2019 CLINICAL HISTORY: Pain after fall injury. TECHNIQUE: Three views of the right knee are obtained. COMPARISON: Bilateral knee x-rays January 18, 2014.. FINDINGS: There is no acute fracture/dislocation evident in right knee. The tri-compartment joint s paces appear within normal limits. The overlying soft tissue appears unremarkable. IMPRESSION: There is no acute fracture or dislocation in the right knee.
== END 2019-06-29 16:45 | disposition home or self-care (01) ==
LOC: EC 15:28
DX: S83.91XA Sprain of unspecified site of right knee, initial encounter (principal); F90.9 Attention-deficit hyperactivity disorder, unspecified type; F41.9 Anxiety disorder, unspecified; F32.9 Major depressive disorder, single episode, unspecified; F43.10 Post-traumatic stress disorder, unspecified; F17.200 Nicotine dependence, unspecified, uncomplicated; Z79.899 Other long term (current) drug therapy; X50.1XXA Overexertion from prolonged static or awkward postures, initial encounter; Y92.69 Other specified industrial and construction area as the place of occurrence of the external cause; Y99.0 Civilian activity done for income or pay
CPT/HCPCS: 73562; 99284; L1830

== ENCOUNTER 2021-03-02 17:57 | Emergency (ER) | payer OTHER ==
[2021-03-02 18:55] VITALS: TEMP 98.1
--- NOTE | 2021-03-02 19:07 | XR ---
EXAMINATION TYPE: XR chest 2V DATE OF EXAM: 03/02/2021 COMPARISON: 07/17/2020 HISTORY: Cough TECHNIQUE: 2 views FINDINGS: Heart and mediastinum are normal. Lungs are clear. Diaphragm is normal. Bony thorax appears normal. IMPRESSION: Normal chest. No change.
[2021-03-02 21:29] VITALS: BP 133/98; PULSE 95; RESP 18
--- NOTE | 2021-03-02 21:42 | ED ---
URI HPI - General Chief Complaint: Upper Respiratory Infection Stated Complaint: Cough/sob Time Seen by Provider: 03/02/21 20:31 Source: patient Mode of arrival: ambulatory Limitations: no limitations - History of Present Illness Initial Comments: Patient is a 30-year-old male presenting to the emergency Department with complaints of a cough and some mild shortness of breath that started 3 days ago. Patient states he had the first dose of the J&J Covid vaccine 1 week ago. Patient denies any fevers or chills. He denies history of asthma or COPD. He is in every day smoker. He denies any chest pain. Denies any nausea or vomiting, no abdominal pain. He has no further complaints. - Related Data Home Medications Medication Instructions Recorded Confirmed Citalopram Hydrobromide [CeleXA] 40 mg PO DAILY 08/22/18 07/17/20 modafiniL [Provigil] 200 mg PO DAILY 07/17/20 07/17/20 Previous Rx's Medication Instructions Recorded Albuterol Inhaler [Ventolin Hfa 2 puff INHALATION QID PRN #1 07/17/20 Inhaler] inhaler methylPREDNISolone Dose Pack 4 mg PO DIRECTED #21 package 07/17/20 [Medrol Dose Pack] Benzonatate [Tessalon Perles] 100 mg PO TID PRN #15 capsule 03/02/21 methylPREDNISolone [Medrol Dose 4 mg PO DIRECTED #1 pack 03/02/21 Pack] Allergies Allergy/AdvReac Type Severity Reaction Status Date / Time No Known Allergies Allergy Verified 03/02/21 18:55 Review of Systems ROS Statement: Those systems with pertinent positive or pertinent negative responses have been documented in the HPI. ROS Other: All systems not noted in ROS Statement are negative. Past Medical History Past Medical History: No Reported History Additional Past Medical History / Comment(s): Chronic pain in right shoulder, and bilateral knees. History of Any Multi-Drug Resistant Organisms: None Reported Past Surgical History: Orthopedic Surgery Additional Past Surgical History / Comment(s): (L) KNEE, (R) KNEE, MOUTH SURG A CHILD. pt has right hand fx and is in a soft cast 03/01/17 Additional Past Anesthesia/Blood Transfusion Reaction / Comment(s): agitation after coming out of anesthesia. Past Psychological History: ADD/ADHD, Anxiety, Depression, PTSD Smoking Status: Current every day smoker Past Alcohol Use History: Occasional Past Drug Use History: Marijuana - Past Family History Mother Additional Family Medical History / Comment(s): bulging disc in back. General Exam - General Exam Comments Initial Comments: GENERAL: Patient is well-developed and well-nourished. Patient is nontoxic and in no acute distress. HEAD: Atraumatic, normocephalic. EYES: Pupils equal round and reactive to light, extraocular movements intact, sclera anicteric, conjunctiva are normal. Eyelids were unremarkable. ENT: TMs normal, nares patent, oropharynx clear without exudates. Moist mucous membranes. NECK: Normal range of motion, supple without lymphadenopathy or JVD. LUNGS: Unlabored respirations. Very mild wheezes, no rales or rhonchi. HEART: Regular rate and rhythm without murmurs, rubs or gallops. ABDOMEN: Soft, nontender, normoactive bowel sounds. No guarding, no rebound. No masses appreciated. : Deferred MUSCULOSKELETAL: Normal extremities with adequate strength and normal range of motion, no pitting or edema. No clubbing or cyanosis. NEUROLOGICAL: Patient is alert and oriented x 3. Motor and sensory are also intact. Cranial nerves II through XII grossly intact. Symmetrical smile. Normal speech, normal gait. PSYCH: Normal mood, normal affect. SKIN: Warm, Dry, normal turgor, no rashes or lesions noted. Limitations: no limitations Course Vital Signs 03/02/21 03/02/21 18:49 21:28 Temperature 98.1 F Pulse Rate 108 H 95 Respiratory 20 18 Rate Blood Pressure 126/87 133/98 O2 Sat by Pulse 94 L 93 L Oximetry Medical Decision Making - Medical Decision Making Patient is a 30-year-old male here for cough, mild shortness of breath that started 3 days ago. No fevers, vital signs are stable. He is unremarkable, mild wheezing. Rapid Covid is negative, chest x-ray is clear. Patient has had first dose of Covid vaccine. I discussed with patient and his symptoms are consistent with a viral upper respiratory, possible bronchitis. He does have an inhaler at home, recommended him using this as well as I would give him a prescription of steroids, cough medicine. Patient is stable for discharge. Return parameters were discussed with the patient and he verbalized understanding. Case discussed with Dr. Kitto. - Lab Data Lab Results 03/02/21 Range/Units 18:58 Coronavirus (PCR) Not Detected (Not Detectd) Disposition Clinical Impression: Upper respiratory tract infection Disposition: HOME SELF-CARE Condition: Stable Instructions (If sedation given, give patient instructions): Upper Respiratory Infection (ED) Additional Instructions: Please return to the Emergency Department if symptoms worsen or any other concerns. Inhaler for cough and shortness of breath, take steroids as prescribed. Follow-up with your regular doctor. Prescriptions: methylPREDNISolone [Medrol Dose Pack] 4 mg PO DIRECTED #1 pack Benzonatate [Tessalon Perles] 100 mg PO TID PRN #15 capsule PRN Reason: Cough Is patient prescribed a controlled substance at d/c from ED?: No Referrals: Bhupinder Randhawa [Primary Care Provider] - 1-2 days Time of Disposition: 21:42
== END 2021-03-02 21:53 | disposition home or self-care (01) ==
LOC: EC 17:57
DX: J06.9 Acute upper respiratory infection, unspecified (principal); F41.9 Anxiety disorder, unspecified; F32.9 Major depressive disorder, single episode, unspecified; F17.200 Nicotine dependence, unspecified, uncomplicated; Z79.899 Other long term (current) drug therapy
CPT/HCPCS: 71046; 87635; 99285

== ENCOUNTER 2021-06-11 23:02 | Emergency (ER) | payer OTHER ==
[2021-06-11 23:13] VITALS: BP 118/77; PULSE 88; RESP 19; TEMP 98.1
--- NOTE | 2021-06-11 23:56 | XR ---
EXAMINATION TYPE: XR ankle complete RT DATE OF EXAM: 06/11/2021 COMPARISON: NONE HISTORY: Ankle pain TECHNIQUE: 3 views FINDINGS: There is soft tissue swelling around the ankle. I see no fracture nor dislocation. Ankle mo rtise is anatomic. IMPRESSION: Soft tissue swelling. No fracture.
[2021-06-12] MEDS ORDERED: IBUPROFEN 800 MG TAB PO STA (00:05)
[2021-06-12] MEDS ORDERED: ACETAMINOPHEN TAB 500 MG TAB PO STA (00:05)
--- NOTE | 2021-06-12 00:06 | ED ---
Lower Extremity Injury HPI - General Chief Complaint: Extremity Injury, Lower Stated Complaint: RT ankle injury Time Seen by Provider: 06/11/21 23:25 Source: patient, RN notes reviewed, old records reviewed Mode of arrival: wheelchair - History of Present Illness Initial Comments: This is a 30-year-old male to the ER for evaluation patient presents today for evaluation of right ankle pain. Patient states there is ankle just while walking, no significant trauma but his legs give out when the pain began. MD Complaint: ankle injury -: hour(s) Injury: Ankle: Right Type of Injury: blunt, inversion Place: home Severity: mild Severity scale (1-10): 2 Improves With: nothing Worsens With: nothing Context: walking Associated Symptoms: swelling Treatments Prior to Arrival: splint (none) - Related Data Home Medications Medication Instructions Recorded Confirmed Citalopram Hydrobromide [CeleXA] 40 mg PO DAILY 08/22/18 07/17/20 modafiniL [Provigil] 200 mg PO DAILY 07/17/20 07/17/20 Previous Rx's Medication Instructions Recorded Albuterol Inhaler [Ventolin Hfa 2 puff INHALATION QID PRN #1 07/17/20 Inhaler] inhaler methylPREDNISolone Dose Pack 4 mg PO DIRECTED #21 package 07/17/20 [Medrol Dose Pack] Benzonatate [Tessalon Perles] 100 mg PO TID PRN #15 capsule 03/02/21 methylPREDNISolone [Medrol Dose 4 mg PO DIRECTED #1 pack 03/02/21 Pack] Allergies Allergy/AdvReac Type Severity Reaction Status Date / Time No Known Allergies Allergy Verified 06/11/21 23:14 Review of Systems ROS Statement: Those systems with pertinent positive or pertinent negative responses have been documented in the HPI. ROS Other: All systems not noted in ROS Statement are negative. Past Medical History Past Medical History: No Reported History Additional Past Medical History / Comment(s): Chronic pain in right shoulder, and bilateral knees. History of Any Multi-Drug Resistant Organisms: None Reported Past Surgical History: Orthopedic Surgery Additional Past Surgical History / Comment(s): (L) KNEE, (R) KNEE, MOUTH SURG A CHILD. pt has right hand fx and is in a soft cast 03/01/17 Additional Past Anesthesia/Blood Transfusion Reaction / Comment(s): agitation after coming out of anesthesia. Past Psychological History: ADD/ADHD, Anxiety, Depression, PTSD Smoking Status: Current every day smoker Past Alcohol Use History: Occasional Past Drug Use History: Marijuana - Past Family History Mother Additional Family Medical History / Comment(s): bulging disc in back. General Exam General appearance: alert, in no apparent distress Head exam: Present: atraumatic, normocephalic, normal inspection Eye exam: Present: normal appearance, PERRL, EOMI. Absent: scleral icterus, conjunctival injection, periorbital swelling ENT exam: Present: normal exam, mucous membranes moist Neck exam: Present: normal inspection. Absent: tenderness, meningismus, lymphadenopathy Respiratory exam: Present: normal lung sounds bilaterally. Absent: respiratory distress, wheezes, rales, rhonchi, stridor Cardiovascular Exam: Present: regular rate, normal rhythm, normal heart sounds. Absent: systolic murmur, diastolic murmur, rubs, gallop, clicks GI/Abdominal exam: Present: soft, normal bowel sounds. Absent: distended, tenderness, guarding, rebound, rigid Extremities exam: Present: normal inspection, full ROM, normal capillary refill, other (Significant swelling of right lower ankle). Absent: tenderness, pedal edema, joint swelling, calf tenderness Back exam: Present: normal inspection Neurological exam: Present: alert, oriented X3, CN II-XII intact Psychiatric exam: Present: normal affect, normal mood Skin exam: Present: warm, dry, intact, normal color. Absent: rash Course Vital Signs 06/11/21 23:10 Temperature 98.1 F Pulse Rate 88 Respiratory 19 Rate Blood Pressure 118/77 O2 Sat by Pulse 99 Oximetry - Reevaluation(s) Reevaluation #1: 06/12/21 01:14 Medical record is reviewed Reevaluation #2: 06/12/21 01:14 Patient symptoms are improved here in the ER Reevaluation #3: 06/12/21 01:14 Patient informed results, questions answered, patient feels good for discharge home Medical Decision Making - Medical Decision Making 30 Male to the ER for evaluation. Patient presents today for evaluation regards to right ankle pain and swelling, positive for ankle sprain, no somatic injury noted no fracture. Patient can be discharged home - Radiology Data Radiology results: report reviewed (X-ray right ankle is negative for traumatic injury), image reviewed Disposition Clinical Impression: Right ankle sprain Disposition: HOME SELF-CARE Condition: Good Instructions (If sedation given, give patient instructions): Ankle Sprain (ED) Is patient prescribed a controlled substance at d/c from ED?: No Referrals: Bhupinder Randhawa [Primary Care Provider] - 1-2 days
== END 2021-06-12 00:34 | disposition home or self-care (01) ==
LOC: EC 23:02
DX: S93.401A Sprain of unspecified ligament of right ankle, initial encounter (principal); F17.200 Nicotine dependence, unspecified, uncomplicated; F90.9 Attention-deficit hyperactivity disorder, unspecified type; Z79.899 Other long term (current) drug therapy; W18.30XA Fall on same level, unspecified, initial encounter; Y93.01 Activity, walking, marching and hiking; Y92.009 Unspecified place in unspecified non-institutional (private) residence as the place of occurrence of the external cause
CPT/HCPCS: 99283

== ENCOUNTER → 2021-09-17 | Outpatient (CLI) | payer OTHER | END | disposition home or self-care (01) | LOC: LABWHC1 12:13 | PROVIDERS: ATTEND Family Medicine | DX: R51.9 Headache, unspecified (principal) | CPT/HCPCS: U0003; C9803 ==

== ENCOUNTER 2022-01-15 17:51 | Emergency (ER) | payer OTHER ==
[2022-01-15 17:56] VITALS: TEMP 99.1
--- NOTE | 2022-01-15 19:22 | ED ---
General Adult HPI - General Chief complaint: Upper Respiratory Infection Stated complaint: Headache/cold symptoms Time Seen by Provider: 01/15/22 19:00 Source: patient Mode of arrival: ambulatory Limitations: no limitations - History of Present Illness Initial comments: This 31-year-old male since emergency Department with nasal congestion, sore throat, dull headache and cough that began about 3 hours ago after waking up. Patient states he is here because he wants to be sure he doesn't have COVID-19. Patient describes his headache as dull in nature with a slow onset that is seeming to get better on its own. Patient denies any trouble swallowing or breathing. Patient denies any mucus production with his cough. Patient denies any hemoptysis. Patient denies any fever at home or taking any medications to help relieve his pain. Patient denies any chest pain, shortness of breath, abdominal pain, nausea, vomiting, change in vision, blurred/double vision, change in bowel or bladder, back pain, lightheadedness, dizziness, change in appetite. - Related Data Home Medications Medication Instructions Recorded Confirmed Citalopram Hydrobromide [CeleXA] 40 mg PO DAILY 08/22/18 07/17/20 modafiniL [Provigil] 200 mg PO DAILY 07/17/20 07/17/20 Previous Rx's Medication Instructions Recorded Albuterol Inhaler [Ventolin Hfa 2 puff INHALATION QID PRN #1 07/17/20 Inhaler] inhaler methylPREDNISolone Dose Pack 4 mg PO DIRECTED #21 package 07/17/20 [Medrol Dose Pack] Benzonatate [Tessalon Perles] 100 mg PO TID PRN #15 capsule 03/02/21 methylPREDNISolone [Medrol Dose 4 mg PO DIRECTED #1 pack 03/02/21 Pack] Allergies Allergy/AdvReac Type Severity Reaction Status Date / Time No Known Allergies Allergy Verified 06/11/21 23:14 Review of Systems ROS Statement: Those systems with pertinent positive or pertinent negative responses have been documented in the HPI. ROS Other: All systems not noted in ROS Statement are negative. Past Medical History Past Medical History: No Reported History Additional Past Medical History / Comment(s): Chronic pain in right shoulder, and bilateral knees. History of Any Multi-Drug Resistant Organisms: None Reported Past Surgical History: Orthopedic Surgery Additional Past Surgical History / Comment(s): (L) KNEE, (R) KNEE, MOUTH SURG A CHILD. pt has right hand fx and is in a soft cast 03/01/17 Additional Past Anesthesia/Blood Transfusion Reaction / Comment(s): agitation after coming out of anesthesia. Past Psychological History: ADD/ADHD, Anxiety, Depression, PTSD Smoking Status: Current every day smoker Past Alcohol Use History: Occasional Past Drug Use History: Marijuana - Past Family History Mother Additional Family Medical History / Comment(s): bulging disc in back. General Exam Limitations: no limitations General appearance: alert, in no apparent distress Head exam: Present: atraumatic, normocephalic, other (Patient does sound like he has some nasal congestion when talking) Eye exam: Present: normal appearance, PERRL, EOMI. Absent: periorbital swelling, periorbital tenderness Pupils: Present: normal accommodation ENT exam: Present: mucous membranes moist. Absent: normal oropharynx (Posterior oropharynx with mild erythema. No tonsillar exudates noted. Uvula midline, no peritonsillar abscesses visualized. Patient having no trouble breathing or swallowing) Neck exam: Present: full ROM. Absent: tenderness, meningismus, lymphadenopathy, thyromegaly Respiratory exam: Present: normal lung sounds bilaterally. Absent: respiratory distress, wheezes, rales, rhonchi, stridor, chest wall tenderness, accessory muscle use Cardiovascular Exam: Present: regular rate, normal rhythm, normal heart sounds. Absent: systolic murmur, diastolic murmur, rubs, gallop, clicks GI/Abdominal exam: Present: soft, normal bowel sounds. Absent: distended, tenderness, guarding, rebound, rigid Extremities exam: Present: normal inspection, full ROM, normal capillary refill. Absent: tenderness, pedal edema, joint swelling, calf tenderness Back exam: Present: normal inspection. Absent: tenderness, CVA tenderness (R), CVA tenderness (L), paraspinal tenderness, vertebral tenderness Neurological exam: Present: alert, oriented X3, CN II-XII intact Psychiatric exam: Present: normal affect, normal mood Skin exam: Present: warm, dry, intact, normal color. Absent: rash Course Vital Signs 01/15/22 17:55 Temperature 99.1 F Pulse Rate 102 H Respiratory 22 Rate Blood Pressure 129/91 O2 Sat by Pulse 98 Oximetry - Reevaluation(s) Reevaluation #1: 01/15/22 20:30 Revaluate the patient after receiving Tylenol patient states his symptoms have significantly improved. Patient states he no longer has a headache or sore throat. He states he does have a little bit of nasal congestion. Patient denies any shortness of breath, visual changes, chest pain or abdominal pain. Medical Decision Making - Medical Decision Making This 31-year-old male presents emergency Department with a headache, sore throat, congestion and cough for the last few hours. COVID-19, RSV, and influenza A/B all negative. After receiving Tylenol and stated he felt significant improvement in his headache and sore throat. Patient states his cough is mild and doesn't seem to be here at this time. Patient states he does have a little bit of nasal congestion still. Chest x-ray without any acute abnormalities. Albuterol inhaler given patient. Patient to follow-up with primary care provider next 24-48 hours. Strict return precautions were discussed. Patient verbally agreed to plan. Patient sent home in stable condition. Case discussed with attending, Dr. Davis - Lab Data Lab Results 01/15/22 01/15/22 Range/Units 19:39 19:39 Influenza Type A (PCR) Not Detected (Not Detectd) Influenza Type B (PCR) Not Detected (Not Detectd) RSV (PCR) Not Detected (Not Detectd) SARS-CoV-2 (PCR) Not Detected (Not Detectd) Group A Strep Rapid Negative (Negative) Disposition Clinical Impression: Upper respiratory infection Disposition: HOME SELF-CARE Condition: Stable Instructions (If sedation given, give patient instructions): Upper Respiratory Infection (ED) Additional Instructions: Please follow-up with her primary care provider next 24-48 hours. Please return to the emergency department with any new, worsening, or concerning symptoms. Take Tylenol or Motrin as directed for symptomatic relief. Use albuterol inhaler as directed Is patient prescribed a controlled substance at d/c from ED?: No Referrals: Bhupinder Randhawa [Primary Care Provider] - 1-2 days Time of Disposition: 20:35
[2022-01-15] MEDS: ACETAMINOPHEN TAB 500 MG TAB PO STA (19:38)
--- NOTE | 2022-01-15 19:56 | XR ---
EXAMINATION TYPE: XR chest 2V DATE OF EXAM: 01/15/2022 COMPARISON: NONE HISTORY: 31 years Male. STUDY INDICATION GIVEN: cough . TECHNIQUE: Frontal and lateral chest radiographs. IMPRESSION: No focal airspace disease, pneumothorax or pleural effusion. The cardiomediastinal silhouette is normal in appearance. No acute osseous abnormalities seen. No significant change since prior.
[2022-01-15 20:28] LABS: Influenza A Not Detected (Not Detectd); Influenza B Not Detected (Not Detectd)
[2022-01-15] MEDS: ALBUTEROL HFA INHALER INHALATION STA (20:59)
[2022-01-15 21:19] VITALS: BP 116/76; PULSE 76; RESP 18
== END 2022-01-15 21:21 | disposition home or self-care (01) ==
LOC: EC 17:51
DX: J06.9 Acute upper respiratory infection, unspecified (principal); F17.200 Nicotine dependence, unspecified, uncomplicated; Z20.822 Contact with and (suspected) exposure to COVID-19
CPT/HCPCS: 71046; 87081; 87430; 87636; 94640; 99283

== ENCOUNTER 2022-07-27 15:56 | Emergency (ER) | payer OTHER ==
[2022-07-28] MEDS ORDERED: IBUPROFEN 600 MG TAB PO STA (04:17)
[2022-07-28] MEDS ORDERED: IBUPROFEN 600 MG STARTER PACK 4 TAB BTL PO STA (04:17)
[2022-07-28] MEDS ORDERED: Acetaminophen-Codeine 300-30mg TAB PO STA (04:17)
[2022-07-28] MEDS ORDERED: ACET/COD 300 MG/30 MG STARTER PACK 6 TAB BTL PO STA (04:17)
[2022-07-28] MEDS ORDERED: AMOXIC-POT CLAV 875MG STARTER PACK 2 TAB BTL PO STA (04:17)
[2022-07-28] MEDS ORDERED: AMOXIC-POT CLAV 875-125MG 1 EACH TAB PO STA (04:17)
--- NOTE | 2022-07-28 04:19 | ED ---
ENT HPI - General Stated complaint: dental pain Time Seen by Provider: 07/28/22 04:06 Source: RN notes reviewed, old records reviewed Mode of arrival: EMS Limitations: no limitations - History of Present Illness Initial comments: This is a 31-year-old male with known to our facility, patient usually comes in for some type of psychiatric illness or issue. Patient comes in today for left rear molar pain severe. Patient has persistently severe pain here in the emergency department. No ALLERGIES in medications. No trauma. MD complaint: tooth pain -: days(s) Location: tooth # (left rear) Severity: severe Severity scale (1-10): 10 Quality: aching, sharp Consistency: constant Improves with: none Worsens with: eating Context-Epistaxis: history of similar Context- Dental: history of dental caries, poor dental care Associated Symptoms: toothache - Related Data Home Medications Medication Instructions Recorded Confirmed Citalopram Hydrobromide [CeleXA] 40 mg PO DAILY 08/22/18 07/17/20 modafiniL [Provigil] 200 mg PO DAILY 07/17/20 07/17/20 Previous Rx's Medication Instructions Recorded Albuterol Inhaler [Ventolin Hfa 2 puff INHALATION QID PRN #1 07/17/20 Inhaler] inhaler methylPREDNISolone Dose Pack 4 mg PO DIRECTED #21 package 07/17/20 [Medrol Dose Pack] Benzonatate [Tessalon Perles] 100 mg PO TID PRN #15 capsule 03/02/21 methylPREDNISolone [Medrol Dose 4 mg PO DIRECTED #1 pack 03/02/21 Pack] Allergies Allergy/AdvReac Type Severity Reaction Status Date / Time No Known Allergies Allergy Verified 06/11/21 23:14 Review of Systems ROS Statement: Those systems with pertinent positive or pertinent negative responses have been documented in the HPI. ROS Other: All systems not noted in ROS Statement are negative. Past Medical History Past Medical History: No Reported History Additional Past Medical History / Comment(s): Chronic pain in right shoulder, and bilateral knees. History of Any Multi-Drug Resistant Organisms: None Reported Past Surgical History: Orthopedic Surgery Additional Past Surgical History / Comment(s): (L) KNEE, (R) KNEE, MOUTH SURG A CHILD. pt has right hand fx and is in a soft cast 03/01/17 Additional Past Anesthesia/Blood Transfusion Reaction / Comment(s): agitation after coming out of anesthesia. Past Psychological History: ADD/ADHD, Anxiety, Depression, PTSD Smoking Status: Current every day smoker Past Alcohol Use History: Occasional Past Drug Use History: Marijuana - Past Family History Mother Additional Family Medical History / Comment(s): bulging disc in back. General Exam General appearance: alert, in no apparent distress Head exam: Present: atraumatic, normocephalic, normal inspection Eye exam: Present: normal appearance, PERRL, EOMI. Absent: scleral icterus, conjunctival injection, periorbital swelling ENT exam: Present: normal exam, other (Severe tooth pain) Neck exam: Present: normal inspection. Absent: tenderness, meningismus, lymphadenopathy Respiratory exam: Present: normal lung sounds bilaterally. Absent: respiratory distress, wheezes, rales, rhonchi, stridor Cardiovascular Exam: Present: regular rate, normal rhythm, normal heart sounds. Absent: systolic murmur, diastolic murmur, rubs, gallop, clicks GI/Abdominal exam: Present: soft, normal bowel sounds. Absent: distended, tenderness, guarding, rebound, rigid Extremities exam: Present: normal inspection, full ROM, normal capillary refill. Absent: tenderness, pedal edema, joint swelling, calf tenderness Back exam: Present: normal inspection Neurological exam: Present: alert, oriented X3, CN II-XII intact Psychiatric exam: Present: normal affect, normal mood Skin exam: Present: warm, dry, intact, normal color. Absent: rash Course - Reevaluation(s) Reevaluation #1: 07/28/22 04:27 Medical records reviewed Reevaluation #2: 07/28/22 04:27 Patient symptoms are improved here in the ER Reevaluation #3: 07/28/22 04:27 Patient informed results and questions answered Medical Decision Making - Medical Decision Making 31 male with severe dental caries dental abscess, patient will be placed on antibiotics and pain control follow-up with dentist this week Disposition Clinical Impression: Pain, dental, Dental abscess Disposition: HOME SELF-CARE Condition: Good Instructions (If sedation given, give patient instructions): Dental Abscess (ED), Acute Dental Trauma (ED), Toothache (ED) Is patient prescribed a controlled substance at d/c from ED?: No Referrals: Bhupinder Randhawa [Primary Care Provider] - 1-2 days Wander Olivarez DDS [STAFF PHYSICIAN] - 1-2 days Darryl Daniels DDS [STAFF PHYSICIAN] - 1-2 days Time of Disposition: 04:30
== END 2022-07-28 04:45 | disposition home or self-care (01) ==
LOC: EC 15:56
DX: K04.7 Periapical abscess without sinus (principal); F17.200 Nicotine dependence, unspecified, uncomplicated
CPT/HCPCS: 99282

== ENCOUNTER → 2024-05-31 | Outpatient (CLI) | payer OTHER ==
--- NOTE | 2024-06-06 04:16 | MR ---
EXAMINATION TYPE: MR knee RT wo con DATE OF EXAM: 05/31/2024 COMPARISON: Right knee x-ray June 29, 2019 HISTORY: Rt knee medial pain and swelling May 08. During injury TECHNIQUE: Multiplanar, multisequence images of the knee is performed without IV contrast. FINDINGS: MEDIAL MENISCUS: Anterior and posterior horns are intact without tear. LATERAL MENISCUS: Anterior and posterior horns are intact without tear. CRUCIATE LIGAMENTS: The posterior cruciate ligament is intact and unremarkable. Marked abnormal signa l in the distal half of the anterior cruciate ligament which remains intact. COLLATERAL LIGAMENTS: The medial collateral ligament and lateral collateral ligament complex are inta ct and unremarkable. EXTENSOR MECHANISM: Visualized quadriceps and patellar tendons are intact. EFFUSION: No significant suprapatellar joint effusion. POPLITEAL CYST: No popliteal/palm cyst. TRICOMPARTMENT SPACES: Tricompartment joint spaces are maintained. No significant spurring. CARTILAGE: Tricompartmental articular cartilage is preserved. BONE MARROW SIGNAL: Heterogeneity consistent with red marrow conversion. No suspicious focal marked i ncreased T2 signal or osseous edema.. OTHER: No additional significant abnormality is appreciated. IMPRESSION: 1. Significant partial tearing of the distal anterior cruciate ligament. No meniscal tear.
== END | disposition home or self-care (01) ==
LOC: RADMRIMAIN 15:02
PROVIDERS: ATTEND Orthopaedic Surgery Adult Reconstructive Orthopaedic Surgery
DX: S83.8X1A Sprain of other specified parts of right knee, initial encounter (principal); X58.XXXA Exposure to other specified factors, initial encounter